=== PATIENT | male | born 1955 | race Hispanic/Latino ===

== ENCOUNTER 2017-02-27 08:09 | Day surgery (SDC) | payer BC ==
[2017-02-24 08:58] VITALS: BMI 22.3
[2017-02-27] MEDS ORDERED: Dextrose 50% VIAL Inj (50 ml) IV ONE (08:47)
[2017-02-27] MEDS ORDERED: Propofol 10 mg/ml Inj (20 ML) ONE ×2 (10:24)
[2017-02-27] MEDS ORDERED: Lactated Ringer's 500 ML IV ONE (11:12)
[2017-02-27 12:53] VITALS: TEMP 97
[2017-02-27 13:20] VITALS: O2SAT 100
[2017-02-27 13:23] VITALS: BP 133/97; PULSE 56; RESP 16
== END 2017-02-27 12:18 | disposition home or self-care (01) ==
LOC: C.ENDO 08:09
PROVIDERS: ATTEND Internal Medicine Gastroenterology
DX: D12.4 Benign neoplasm of descending colon (principal); K74.69 Other cirrhosis of liver; K29.70 Gastritis, unspecified, without bleeding; K64.8 Other hemorrhoids; K74.60 Unspecified cirrhosis of liver; I85.10 Secondary esophageal varices without bleeding; K76.6 Portal hypertension; K31.89 Other diseases of stomach and duodenum
CPT/HCPCS: 43239; 45388; 82948; 88305; 88342; J2001; J2704; J3010; J7120

== ENCOUNTER 2017-05-15 07:24 | Day surgery (SDC) | payer BC ==
[2017-05-15 09:03] VITALS: BMI 24.5
[2017-05-15] MEDS ORDERED: Propofol 10 mg/ml Inj (20 ML) ONE ×2 (10:23→10:45)
--- NOTE | 2017-05-15 10:28 | CP.SDSHP ---
Same Day Surgery H & P - History Proposed Procedure: EGD Pre-Op Diagnosis: h/o esophageal varices - Previous Medical/Surgical History Endocrine/Metabolic: Diabetes Comments: HCV cirrhosis - Allergies Allergies: Allergies No Known Allergies Allergy (Verified 02/24/17 08:57) - Physical Exam General Appearance: NAD Vital Signs: Vital Signs 05/15/17 08:34 Temperature 98.7 F Pulse Rate 81 Respiratory 16 Rate Blood Pressure 102/59 L O2 Sat by Pulse 98 Oximetry Mental Status: Alert & Oriented x3 Neuro: WNL Heart: WNL Lungs: WNL GI: WNL - {Optional Preform as Required} Abdomen: WNL - Impression Pt. Evaluated Today:Candidate for Anesthesia & Procedure: Yes - Date & Time Date: 05/15/17 Time: 10:28 Short Stay Discharge - Short Stay Discharge Admitting Diagnosis/Reason for Visit: ESOPHAGEAL VARICES WITHOUT BLEEDING Disposition: HOME/ ROUTINE
[2017-05-15 11:27] VITALS: TEMP 98.2; O2SAT 99
[2017-05-15 12:22] VITALS: BP 150/81; PULSE 63; RESP 18
== END 2017-05-15 12:19 | disposition home or self-care (01) ==
LOC: C.ENDO 07:24
PROVIDERS: ATTEND Internal Medicine Gastroenterology
DX: I85.00 Esophageal varices without bleeding (principal)
CPT/HCPCS: 43235; 82948; J2405; J2704; J2765; J3010

== ENCOUNTER 2017-07-09 08:01 | Day surgery (SDC) | payer BC ==
[2017-07-09 08:37] VITALS: BMI 21.8
--- NOTE | 2017-07-09 10:49 | CP.SDSHP ---
Same Day Surgery H & P - History Proposed Procedure: EGD Pre-Op Diagnosis: variceal surveillance - Previous Medical/Surgical History Endocrine/Metabolic: Diabetes Comments: bipolar disorder, cirrhosis - Allergies Allergies: Allergies No Known Allergies Allergy (Verified 07/09/17 08:36) - Physical Exam General Appearance: NAD Vital Signs: Vital Signs 07/09/17 08:15 Temperature 97.5 F L Pulse Rate 89 Respiratory 19 Rate Blood Pressure 123/76 O2 Sat by Pulse 100 Oximetry Mental Status: Alert & Oriented x3 Neuro: WNL Heart: WNL Lungs: WNL GI: WNL - {Optional Preform as Required} Abdomen: WNL - Impression Pt. Evaluated Today:Candidate for Anesthesia & Procedure: Yes - Date & Time Date: 07/09/17 Time: 10:49 Short Stay Discharge - Short Stay Discharge Admitting Diagnosis/Reason for Visit: VARICES ESOPHAGEAL Disposition: HOME/ ROUTINE
[2017-07-09] MEDS ORDERED: Lactated Ringer's 1,000 ML IV ONE (10:50)
[2017-07-09] MEDS ORDERED: Lidocaine Hydrochloride 5 ML INJ ONE (10:50)
[2017-07-09] MEDS ORDERED: Propofol 10 mg/ml Inj (20 ML) ONE ×2 (10:50)
[2017-07-09 11:22] VITALS: TEMP 98.5
[2017-07-09 11:34] VITALS: O2SAT 100
[2017-07-09 12:08] VITALS: BP 121/73; PULSE 65; RESP 14
== END 2017-07-09 12:00 | disposition home or self-care (01) ==
LOC: C.ENDO 08:01
PROVIDERS: ATTEND Internal Medicine Gastroenterology
DX: I85.00 Esophageal varices without bleeding (principal); B37.81 Candidal esophagitis; K31.9 Disease of stomach and duodenum, unspecified; K74.60 Unspecified cirrhosis of liver; E11.9 Type 2 diabetes mellitus without complications; F31.9 Bipolar disorder, unspecified
CPT/HCPCS: 43239; 82948; 88305; 88312; J2704; J7120

== ENCOUNTER 2018-01-13 05:27 | Emergency (ER) | payer MEDICARE ==
[2018-01-13 05:27] VITALS: BMI 21.8
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
--- NOTE | 2018-01-13 08:34 | RAD ---
Date of service: 01/13/2018 PROCEDURE: Right Ankle Radiographs. HISTORY: ankle pain COMPARISON: None FINDINGS: BONES: A 6 x 2 mm well corticated ossification projects between medial malleolus and medial talus. Old osseous avulsion and/or loose body here is compatible with this. Inferior calcaneal spur . JOINTS: Mild osteoarthrosis. Ankle mortise maintained. Talar dome intact SOFT TISSUES: Increased soft tissue density posterior tibiotalar joint over Kager's fat-pad OTHER FINDINGS: Atherosclerotic vascular calcifications present. IMPRESSION: No acute fracture.Increased soft tissue density posterior tibiotalar joint over Kager's fat-pad Medial ankle joint loose body and/or old osseous avulsion Atherosclerotic vascular disease
[2018-01-13 10:53] VITALS: BP 98/58; PULSE 66; RESP 19; TEMP 98; O2SAT 100
--- NOTE | 2018-01-13 11:30 | CT ---
CT chest History: Fall. Comparison: None available. Technique: Multiple contiguous axial images were performed through the chest without the use of intravenous contrast. Subsequently, sagittal coronal reformatted images were obtained. This CT exam was performed using one or more of the following dose reduction techniques: Automated exposure control, adjustment of the mA and/or kV according to patient size, and/or use of iterative reconstruction technique. Findings: Bilateral dependent and subsegmental atelectasis. No gross pleural effusion. Heart size within normal limits. No evidence for mediastinal hematoma. Mild atherosclerosis of the thoracoabdominal aorta. Degenerative changes within the thoracic spine. Nodular contour of the liver surface consistent with cirrhosis. Moderate splenomegaly suggesting portal hypertension. 5 millimeter calculus within the midpole of the left kidney. Impression: Negative acute. Additional findings as above. These findings were preliminarily reported at 9:07 a.m. on 01/13/[address] Tristan Macias from [facility].
--- NOTE | 2018-01-13 11:45 | CT ---
CT right knee History: Fall. Injury. Comparison: None available. Technique: Multiple contiguous axial images were performed through the right knee without the use of intravenous contrast. Subsequently, sagittal and coronal reformatted images were obtained. This CT exam was performed using one or more of the following dose reduction techniques: Automated exposure control, adjustment of the mA and/or kV according to patient size, and/or use of iterative reconstruction technique. Findings: Oblique mildly displaced fracture of the proximal fibular metadiaphysis. Remainder of the visualized osseous structures appear preserved. Soft tissue swelling which appears most pronounced along the anterior aspect. Small knee joint effusion. Fairly diffuse atherosclerosis of the vasculature. Impression: Mildly displaced fracture involving the proximal fibular metadiaphysis. Soft swelling with a small knee joint effusion. Additional findings as above. These findings were preliminarily reported at 8:47 a.m. on 01/13/[address] Tristan Macias from [facility].
--- NOTE | 2018-01-13 13:51 | RAD ---
Date of service: 01/13/2018 PROCEDURE: Radiographs of the right tibia and fibula. HISTORY: r/o fx COMPARISON: None available TECHNIQUE: Frontal and lateral views obtained. FINDINGS: BONES: An oblique nondisplaced fracture the proximal metaphysis -diaphyseal junction without significant appearing angulation deformity is noted. JOINT SPACES: Unremarkable. OTHER FINDINGS: None. IMPRESSION: Nondisplaced proximal fibular fracture
--- NOTE | 2018-01-13 14:08 | RAD ---
Date of service: 01/13/2018 PROCEDURE: Right Knee Radiographs. HISTORY: ro fx COMPARISON: None. FINDINGS: BONES: An oblique nondisplaced fracture the proximal metaphysis -diaphyseal junction without significant appearing angulation deformity is noted. JOINTS: Mild osteoarthritis. JOINT EFFUSION: Small suprapatellar joint effusion probable OTHER FINDINGS: Atherosclerotic vascular calcifications present. IMPRESSION: An oblique nondisplaced fracture the proximal metaphysis -diaphyseal junction without significant appearing angulation deformity is noted.
== END 2018-01-13 11:19 | disposition home or self-care (01) ==
LOC: C.ER 05:27
DX: M25.561 Pain in right knee (principal); R07.81 Pleurodynia; I10 Essential (primary) hypertension; M06.9 Rheumatoid arthritis, unspecified